=== PATIENT | male | born 1955 | race Caucasian/White ===

== ENCOUNTER 2016-11-14 06:07 | Day surgery (SDC) | payer OTHER ==
[2016-11-07 11:37] VITALS: BMI 25.1
[2016-11-14] MEDS ORDERED: ROPIVACAINE HCL 0.5% 30ML VIAL ONE (06:34)
[2016-11-14] MEDS ORDERED: DEXAMETHASONE SOD PHOSPHATE/PF 10 MG/ML SDV ONE (06:34)
[2016-11-14] MEDS ORDERED: MIDAZOLAM HCL 2 MG/2 ML SINGLE DOSE VIAL ONE (06:34)
[2016-11-14] MEDS ORDERED: BUPIVACAINE HCL/EPINEPHRINE/PF 30 ML VIAL IJ ONE (07:09)
[2016-11-14] MEDS ORDERED: EPINEPHrine 1:1,000 1 MG/1 ML - 30ML VIAL (INJECTION) ONE (07:10)
--- NOTE | 2016-11-14 07:38 | HP ---
Admitting History and Physical - Admission History of Present Illness: The patient injured himself chronically with crossfit. He states that he has pain with moving his left shoulder upwards and away from his body. He denies any CP, SOB, cough or fevers. History Source: Patient Limitations to Obtaining History: No Limitations - Past Medical History Cardiovascular: No: Deep Vein Thrombosis, HTN Pulmonary: No: Asthma, Sleep Apnea Gastrointestinal: No: Gastritis, GERD Renal/: No: Hematuria, Renal Calculi - Past Surgical History Past Surgical History: Yes: None - Smoking History Smoking history: Never smoked - Alcohol/Substance Use Hx Alcohol Use: No Home Medications - Allergies Allergies/Adverse Reactions: Allergies Allergy/AdvReac Type Severity Reaction Status Date / Time No Known Allergies Allergy Verified 11/14/16 06:42 - Home Medications Home Medications: Ambulatory Orders Levothyroxine [Synthroid -] 112 mcg PO DAILY 11/07/16 Review of Systems - Review of Systems Constitutional: denies: Chills, Fever Neck: reports: Stiffness. denies: Decreased ROM, Pain on Movement Cardiovascular: denies: Edema, Palpitations Respiratory: denies: Cough, SOB Gastrointestinal: denies: Abdominal Pain, Constipation Genitourinary: denies: Burning, Dysuria Musculoskeletal: reports: Decreased ROM (left shoulder). denies: Extremity Pain Neurological: denies: Headache, Parasthesia Hematology/Lymphatic: denies: Easily Bruised, Excessive Bleeding Physical Examination Vital Signs: Vital Signs Temperature 97.5 F L 11/14/16 06:44 Pulse Rate 51 L 11/14/16 06:44 Respiratory Rate 16 11/14/16 06:44 Blood Pressure 118/85 11/14/16 06:44 O2 Sat by Pulse Oximetry (%) 100 11/14/16 06:44 Constitutional: Yes: Well Nourished, Anxious Eyes: Yes: Conjunctiva Clear. No: Sclera Icterus HENT: Yes: WNL, Atraumatic, Normocephalic Neck: Yes: WNL, Supple, Trachea Midline Cardiovascular: Yes: WNL, Regular Rate and Rhythm Respiratory: Yes: WNL, Regular, CTA Bilaterally Gastrointestinal: Yes: WNL, Normal Bowel Sounds, Soft Musculoskeletal: Yes: Joint Stiffness (decreased ROM to left upper ext. unable to abduct/extend his left arm.). No: Joint Swelling Extremities: No: Calf Tenderness, Deformity Edema: No Peripheral Pulses WNL: Yes Peripheral Pulses: Left Doralis Pedis: 2+, Right Dorsalis Pedis: 2+ Neurological: Yes: WNL, Alert, Oriented ...Motor Strength: WNL, LUE, LLE, RUE, RLE Psychiatric: Yes: WNL, Alert, Oriented Assessment/Plan A/P: 61 yo male with LEft shoulder OA, Frozen Shoulder Plan for left shoulder arthroscopy today under local/iv sedation/regional block Iv abx at the time of surgery SCDs to LE for DVT ppx
[2016-11-14] MEDS ORDERED: PROPOFOL 20 ML ONE (07:48)
[2016-11-14] MEDS ORDERED: methylPREDNISolone ACET (DEPO) 40 MG/1 ML VIAL ONE (08:15)
[2016-11-14] MEDS ORDERED: ONDANSETRON 4 MG/2 ML VIAL ONE (08:28)
[2016-11-14] MEDS ORDERED: DEXAMETHASONE SOD PHOSPHATE 4 MG/1 ML VIAL ONE (08:28)
[2016-11-14] MEDS ORDERED: ceFAZolin SODIUM 1 GM VIAL ONE (08:28)
[2016-11-14] MEDS ORDERED: oxyCODONE HCL 5 MG TABLET PO PRN (08:39)
[2016-11-14] MEDS ORDERED: oxyCODONE HCL 10 MG SUSTAINED ACTING TABLET PO ONE (08:39)
--- NOTE | 2016-11-14 08:46 | DS ---
Physical Examination Vital Signs: Vital Signs Temperature 97.5 F L 11/14/16 06:44 Pulse Rate 51 L 11/14/16 06:44 Respiratory Rate 16 11/14/16 06:44 Blood Pressure 118/85 11/14/16 06:44 O2 Sat by Pulse Oximetry (%) 100 11/14/16 06:44 Discharge Summary Reason For Visit: SYNOVITIS,DEBRIS, LEFT SHOULDER Condition: Good - Instructions Diet, Activity, Other Instructions: Post Operative Instructions: Shoulder Arthroscopy Dr Mehul Marie 1. Pain following a Shoulder Arthroscopy is variable and can be significant. Some patients will have more pain than others. You have been provided with a prescription for medication that contains a narcotic. You are not allowed to drive while on this medication. You should NOT take Tylenol (Acetaminophen) when taking the pain medication ( it will result in an overdose). Feel free to take medications such as Ibuprofen or Naprosyn in addition to the pain medicine if you do not have any problems with the NSAID class of medications. 2. Apply ice to the shoulder for 15 minutes every hour. You may continue this for as many days as necessary. 3. You may find sleeping on an incline (reclining chair) to be more comfortable for the first few days. 4. You may remove your sling when the arm is comfortable. 5. You may use the arm as tolerated. 6. You may remove the bandages in 48 hours. You may shower at that point. 7. Place band-aids on the sutures after your shower.Do not put any creams or lotions on the incision until after the sutures are removed. 8. Please call the office to schedule a visit to have your sutures removed. 9. If for any reason you believe you may have an infection or are concerned, please feel free to call me. I can be reached through our office number 24 hours a day. 10. Please call our office with any questions; we will review the surgical findings during your post-operative visit. Disposition: HOME - Home Medications Comprehensive Discharge Medication List: Ambulatory Orders Levothyroxine [Synthroid -] 112 mcg PO DAILY 11/07/16
--- NOTE | 2016-11-14 08:46 | OP ---
Operative Note - Note: Operative Date: 11/14/16 Pre-Operative Diagnosis: LEft shoulder OA, Frozen Shoulder, Bursitis, cuff tendinosis Operation: LSA, capsulotomy, synovectomy, cuff debridement/ decompression Post-Operative Diagnosis: Same as Pre-op Surgeon: Mehul Marie Anesthesiologist/UPHOLSTERY INSTRUCTOR: Jimenez Diaz Anesthesia: Local Operative Report Dictated: Yes
[2016-11-14 10:17] VITALS: PULSE 67
[2016-11-14 10:21] VITALS: BP 127/76; TEMP 98
[2016-11-14] MEDS ORDERED: ONDANSETRON 4 MG/2 ML VIAL IVPUSH PRN (13:35)
[2016-11-14] MEDS ORDERED: ACETAMINOPHEN 325 MG TABLET (FP) PO SCH (13:45)
--- NOTE | 2016-11-14 17:35 | SURG ---
Surgery Improvement Director Note Improvement Director: Pauline Reeves PA-C Date of Service: 11/14/16 Diagnosis: LEft shoulder OA, Frozen Shoulder, Bursitis, cuff tendinosis Procedure: LSA, capsulotomy, synovectomy, cuff debridement/ decompression I was present for the entirety of the operative procedure. For further detail, please refer to operative report. Visit type - Case Type Case Type: Scheduled Admission - Emergency Emergency Visit: No - New patient This patient is new to me today: Yes Date on this admission: 11/14/16 - Critical Care Critical Care patient: No
--- NOTE | 2016-11-19 14:19 | PATH ---
Surgical Pathology Report Patient Name: SUSANNA REYES [facility]. Rec. #: [id number] /Age/Gender: 1955 (Age: 61) / M Account: [id number] Location: [facility] AMBULATORY Taken: 11/14/2016 Received: 11/14/2016 Reported: 11/19/2016 Physicians: Mehul Marie M.D. Specimen(s) Received SHAVINGS LEFT SHOULDER Clinical History Synovitis, debridement left shoulder Final Diagnosis SHOULDER, LEFT, ARTHROSCOPIC SHAVINGS: FIBROSYNOVIAL TISSUE, SCANT CARTILAGE AND BONE. Electronically Signed Anneliese Waters M.D. Gross Description Received in formalin, labeled "shavings left shoulder," is a 1.5 x 1.3 x 0.2 cm. aggregate of la-yellow soft tissue fragments. The specimen is entirely submitted in one cassette. 11/17/201611/17/2016
== END 2016-11-14 10:10 | disposition home or self-care (01) ==
LOC: FASU 06:07
PROVIDERS: ATTEND Orthopaedic Surgery
PROC: 0RQK4ZZ Repair Left Shoulder Joint, Percutaneous Endoscopic Approach (ICD-10-PCS; 2016-11-14)
PROC: 0RBK4ZZ Excision of Left Shoulder Joint, Percutaneous Endoscopic Approach (ICD-10-PCS; principal; 2016-11-14 08:11)
DX: M19.012 Primary osteoarthritis, left shoulder (principal); M65.812 Other synovitis and tenosynovitis, left shoulder; M75.52 Bursitis of left shoulder; M75.22 Bicipital tendinitis, left shoulder; M24.012 Loose body in left shoulder
CPT/HCPCS: 88304-TC